=== PATIENT | male | born 1950 | race Caucasian/White ===

== ENCOUNTER 2019-10-09 17:49 | Emergency (ER) | payer MEDICARE, SELFPAY ==
[2019-10-09 18:16] VITALS: BP 80/50; PULSE 61; RESP 16; TEMP 36.5; O2SAT 92; BMI 22.6
--- NOTE | 2019-10-09 18:33 | ED_ITS ---
Entered by Pam Hudson, acting as scribe for Kathy Reid MD, [facility] [place] Oct 09, 2019 17:49 HPI - SOB/Dyspnea General: Chief Complaint: Shortness of Breath/Dyspnea Stated Complaint: SOB, weakness Time Seen by Provider: 10/09/19 18:33 History of Present Illness: HPI Narrative: 69 yo male presents to ED with complaints of difficulty breathing. He said he had his oxygen on but his O2 went down to 73% and never over 80%, on 3L of oxygen. He said his legs are weak and he nearly passed out. He went to his PCP for treatment of an infection in his L arm and was given antibiotics for the beginning stages of pneumonia. His blood pressure has been low (80/40's). He was with his spouse at work yesterday when he began yelling for her, stating that he was weak. He did have a breathing treatment at 1400; his oxygen levels never improved. He said he has had chills but no fever. He confirms body aches and back pain in his lung area. He smokes about 5 cigarettes a day. MD elicited complaint: shortness of breath Pertinent past history: COPD and other (emphysema, fibrosis) Onset (ago): day(s) (yesterday) Context: recent illness Timing: constant Severity: severe Exacerbating factors: exertion, movement, talking and smoke Relieving factors: oxygen, rest and medication Known history of: COPD, recurrent pneumonia and other (emphysema, fibrosis) Associated symptoms: Reports chest pain and other (weakness); Deny abdominal pain, fever(s), nausea, palpitations, polydipsia, polyuria or vomiting Treatment prior to arrival: oxygen and other (breathing treatment) Related Data: Home oxygen amount: 3 liters Review of Systems General: Reports: 10 or more systems reviewed and unremarkable except in HPI and below Const: Denies: fever, chills or body aches Eyes: Reports: blind spots; Denies: change in vision or blurry vision ENMT: Denies: throat pain, enlarged tonsils, painful swallowing, hoarseness, mouth pain or swelling of lips/tongue Card: Reports: chest pain; Denies: palpitations, irregular heart rhythm, edema or swelling of feet/ankles Resp: Denies: shortness of breath, productive cough or non-productive cough GI: Denies: abdominal pain, nausea or vomiting : Denies: flank pain, painful urination, urinary frequency, urinary urgency or urinary hesitancy Musc: Denies: neck pain, back pain or extremity swelling Skin/Breast: Denies: rash, itching or redness Neuro: Denies: headache, numbness in extremities or weakness in extremities Endo: Denies: excessive urination, excessive thirst or tired all the time PFSH ED PFSH: Social History (Updated 10/08/19 @ 10:28 by June Brice LPN) Smoking and tobacco status: current every day smoker Physical Exam Const: COMMON NORMALS: no apparent distress, average body habitus, oriented x3, no limitations, healthy appearing, alert and well nourished HENMT: COMMON NORMALS: normocephalic, head/scalp atraumatic and moist oral mucous membranes HEAD & SCALP: normocephalic and atraumatic Eye: COMMON NORMALS: PERRL, EOMs intact bilaterally, conjunctivae normal and no scleral icterus CONJUNCTIVA: Yes conjunctivae normal PUPIL: Yes PERRL Neck/C-Spine: COMMON NORMALS: full ROM, supple, no meningeal signs, no JVD and no carotid bruits Chest: COMMONS NORMALS: inspection of chest normal and palpation of chest normal Resp: COMMON NORMALS: normal respiratory effort, no retractions, no use of accessory muscles, clear to auscultation bilaterally and percussion normal AUSCULTATION: clear to auscultation bilaterally, crackles and rales PERCUSSION: percussion normal Cardio: COMMON NORMALS: no JVD, regular rate, regular rhythm, S1 normal heart sound, S2 normal heart sound, no gallops, no clicks, no murmurs, no rub and peripheral pulses 2+ throughout RATE: regular rate RHYTHM: regular rhythm HEART SOUNDS: S1 normal and S2 normal PERIPHERAL PULSES: pulses 2+ throughout GI: COMMON NORMALS: normal to inspection, nondistended, normoactive bowel sounds, soft to palpation, non-tender, no hepatosplenomegaly, no masses and no bruits PALPATION: Yes soft and Yes no hepatosplenomegaly : COMMON NORMALS: Yes no CVA tenderness BLADDER/KIDNEY EXAM: Yes no CVA tenderness Back/Pelvis: COMMON NORMALS: no CVA tenderness Extremity: COMMON NORMALS: normal to inspection, full ROM, normal capillary refill, no calf tenderness and no pedal edema Neuro: COMMON NORMALS: oriented x3 SENSORIUM/ORIENTATION: Yes alert MENINGEAL SIGNS: Yes no meningeal signs Skin: COMMON NORMALS: no rashes or lesions noted, no wounds, skin turgor normal, no jaundice, no petechiae and no mottling GENERAL SKIN EXAM: no rashes or lesions noted and turgor normal Course Reevaluation(s): Reevaluation #1: Discussed his lab and imaging findings with him. Negative for acute findings. We will treat him as a case of acute COPD exacerbation. He feels much improved following the treatment he has received in the ED. We will discharge him home on oral steroids and antibiotics. He voiced underst anding and is in agreement with the plan Time: 21:50 Vital Signs: Vital signs: Vital Signs Temperature 97.7 F 10/09/19 18:16 Pulse Rate 76 10/09/19 22:34 Respiratory Rate 16 10/09/19 22:34 Blood Pressure 118/78 10/09/19 22:34 Pulse Oximetry 96 10/09/19 22:34 MDM - SOB/Dyspnea MDM Narrative: Medical decision making narrative: Patient with clinical features consistent with a COPD exacerbation. Evaluation here in the emergency department is unremarkable. He is discharged home on oral antibiotics and corticosteroids. Differential Diagnosis: Shortness of Breath Differential Diagnosis: Likely acute exacerbation of chronic obstructive airways disease, community acquired pneumonia and pulmonary embolism (low pretest probablility) Medical Records: Attestation: I reviewed the patient's medical records. Lab Data: Attestation: I reviewed the patient's lab results. Labs: Lab Results 10/09/19 10/09/19 10/09/19 Range/Units 19:04 19:04 19:04 WBC 8.9 (4.0-10.0) 10^3/ uL RBC 4.59 (4.1-5.3) 10^6/u L Hgb 13.7 (11.7-16.6) g/dL Hct 41.1 L (42.0-52.0) % MCV 89.5 (80-94) fL MCH 29.8 (28.0-34.0) pg MCHC 33.3 (30.0-36.0) g/dL RDW 13.6 (12.1-15.1) % Plt Count 242 (130-400) 10^3/c mm MPV 9.1 (7.4-10.4) fL Neut % (Auto) 56.5 % Lymph % (Auto) 33.0 % Slope % (Auto) 8.0 % Eos % (Auto) 2.0 % Baso % (Auto) 0.4 % Neut # (Auto) 5.0 (1.8-7.7) 10^3/u L Lymph # (Auto) 2.9 (0.8-4.8) 10^3/u L Slope # (Auto) 0.7 (0.2-0.9) 10^3/u L Eos # (Auto) 0.2 (0.0-0.8) 10^3/u L Baso # (Auto) 0.0 (0.0-0.1) 10^3/u L Nucleated RBC % (a uto) 0 % Nucleated RBCs # 0.0 /100WBC D-Dimer 0.36 (0-0.59) ug/mIFE U Specimen Type Sample Site ABG pH (7.35-7.45) ABG pCO2 (35-45) mmHg ABG pO2 (80.0-100.0) mmH g ABG HCO3 (22-26) mmol/L ABG Base Excess (-2.0-2.0) mmol/ L Nico Test Hematocrit (42-52) % Hgb O2 Saturation (95-100) % Carboxyhemoglobin (0.4-20.1) %THgb Methemoglobin (0.4-1.5) % Total Hemoglobin (14-18) g/dL O2 Delivery Device O2 Liters/Min % Mill Supervisor ID Sodium 138 (136-145) mmol/L Potassium 4.2 (3.5-5.1) mmol/L Chloride 101 (98-107) mmol/L Carbon Dioxide 26 (22-29) mmol/L Anion Gap 15.2 (5-19) BUN 15 (8-23) mg/dL Creatinine 0.9 (0.7-1.2) mg/dL GFR Calculation 83.9 L (90-130) mL/min Glucose 107 (65-115) mg/dL Calcium 9.6 (8.5-10.5) mg/dL Total Bilirubin 0.3 (0.15-1.2) mg/dL AST 14 (0-40) U/L ALT 11 (0-41) U/L Alkaline Phosphata se 72 (40-130) IU/L NT-Pro-B Natriuret Pep 106 (0-125) pg/mL Total Protein 7.3 (6.6-8.7) g/dL Albumin 4.1 (3.5-5.2) g/dL Globulin 3.2 (1.3-4.6) g/dL Influenza Type A A g (Negative) POC Influenza B Ag (Negative) 10/09/19 10/09/19 Range/Units 19:05 19:20 WBC (4.0-10.0) 10^3/ uL RBC (4.1-5.3) 10^6/u L Hgb (11.7-16.6) g/dL Hct (42.0-52.0) % MCV (80-94) fL MCH (28.0-34.0) pg MCHC (30.0-36.0) g/dL RDW (12.1-15.1) % Plt Count (130-400) 10^3/c mm MPV (7.4-10.4) fL Neut % (Auto) % Lymph % (Auto) % Slope % (Auto) % Eos % (Auto) % Baso % (Auto) % Neut # (Auto) (1.8-7.7) 10^3/u L Lymph # (Auto) (0.8-4.8) 10^3/u L Slope # (Auto) (0.2-0.9) 10^3/u L Eos # (Auto) (0.0-0.8) 10^3/u L Baso # (Auto) (0.0-0.1) 10^3/u L Nucleated RBC % (a uto) % Nucleated RBCs # /100WBC D-Dimer (0-0.59) ug/mIFE U Specimen Type Arterial Sample Site Radial, left ABG pH 7.46 H (7.35-7.45) ABG pCO2 36.0 (35-45) mmHg ABG pO2 64.9 L (80.0-100.0) mmH g ABG HCO3 25.6 (22-26) mmol/L ABG Base Excess 2.0 (-2.0-2.0) mmol/ L Nico Test Pos Hematocrit 45.3 (42-52) % Hgb O2 Saturation 92.1 L (95-100) % Carboxyhemoglobin 2.1 (0.4-20.1) %THgb Methemoglobin 0.2 L (0.4-1.5) % Total Hemoglobin 14.8 (14-18) g/dL O2 Delivery Device Nc O2 Liters/Min 3.0 % Mill Supervisor ID ellpe Sodium (136-145) mmol/L Potassium (3.5-5.1) mmol/L Chloride (98-107) mmol/L Carbon Dioxide (22-29) mmol/L Anion Gap (5-19) BUN (8-23) mg/dL Creatinine (0.7-1.2) mg/dL GFR Calculation (90-130) mL/min Glucose (65-115) mg/dL Calcium (8.5-10.5) mg/dL Total Bilirubin (0.15-1.2) mg/dL AST (0-40) U/L ALT (0-41) U/L Alkaline Phosphata se (40-130) IU/L NT-Pro-B Natriuret Pep (0-125) pg/mL Total Protein (6.6-8.7) g/dL Albumin (3.5-5.2) g/dL Globulin (1.3-4.6) g/dL Influenza Type A A g Negative (Negative) POC Influenza B Ag Negative (Negative) EKG Data^: EKG 1: Attestation: I personally reviewed and interpreted this EKG as follows: EKG Interpretation Date: 10/09/19 EKG interpretation time: 18:33 Prior EKG tracings: not available for review Interpretation: Sinus bradycardia. Heart rate 56. No ST changes. Normal axis. Discharge Plan Discharge Patient Disposition: Home, Self-Care Clinical Impression: Acute exacerbation of chronic obstructive airways disease Condition: Stable Prescriptions: New azithromycin 250 mg tablet See Rx Instructions .ROUTE .COMPLEX Qty: 6 RF: 0 prednisone 20 mg tablet 40 mg PO DAILY Qty: 10 RF: 0 Continued cephalexin [Keflex] 500 mg capsule 500 mg PO Q8H 10 Days Qty: 30 RF: 0 sertraline 50 mg tablet 100 mg PO DAILY RF: 0 ranitidine HCl 300 mg capsule 300 mg PO BID RF: 0 aspirin 81 mg tablet,delayed release (DR/EC) 81 mg PO DAILY RF: 0 bicalutamide 50 mg Tablet 50 mg PO DAILY RF: 0 Wixela Inhub 250-50 mcg/dose Blister With Device 1 inh INHALATION BID RF: 0 albuterol sulfate 2.5 mg /3 mL (0.083 %) Solution For Nebulization 2.5 mg INHALATION Q4H PRN (Reason: Shortness Of Breath) RF: 0 prednisone 2.5 mg Tablet 2.5 mg PO DAILY RF: 0 ProAir HFA 90 mcg/actuation Hfa Aerosol Inhaler 2 puff INHALATION Q6H PRN (Reason: Shortness Of Breath) RF: 0 Discharge Orders: Discharge Order (Routine); Ordered 10/09/19 Ordered By: Kathy Reid Referrals: Bernadette Ross FNP [Primary Care Provider] - 1-3 days Patient Instructions: Chronic Obstructive Pulmonary Disease (ED) Activity Restrictions/Additional Instructions: Use your nebulizer every 4 hours for the next 2 days scheduled while awake. After that you can use it as needed. Take the antibiotic and steroid as prescribed. Follow-up with your primary care provider within 3 days. Discharge Date/Time: 10/09/19 22:35 Coding Level of Care Code ED Mixing Tumbler Operator for Chg Fwd Exam Comprehensive The documentation recorded by the Becca garcia Valerie R, accurately reflects the service I personally performed and the decisions made by Franklin middleton Adegoke I, MD, [facility] [place] Oct 09, 2019 17:49
--- NOTE | 2019-10-09 18:59 | XR_ITS ---
WS: [id number] XR chest 2V insp/exp [id number] REASON FOR EXAM: SOB FINDINGS: Comparisons were made to July 08, 2017. A reticular nodular pattern is seen throughout both lung granados. There appears to be borderline in the upper lungs and there is findings of centrilobular emphysema. The heart was not enlarged. There is arteriosclerotic changes seen. XR/XR chest 2V insp/exp [id number] IMPRESSION: Bullous emphysematous changes. Interstitial pulmonary fibrosis.
[2019-10-09] MEDS: ipratropium-albuterol 3 mL Neb INHALATION (19:08)
[2019-10-09 19:09] VITALS: PULSE 52; RESP 18; O2SAT 97
[2019-10-09 19:12] LABS: Basophils % 0.4 %; Eosinophils # 0.2 10^3/uL (0.0-0.8); Hematocrit 41.1 % (42.0-52.0); Hemoglobin 13.7 g/dL (11.7-16.6); Lymphocytes # 2.9 10^3/uL (0.8-4.8); Mean Corpuscular HGB Conc 33.3 g/dL (30.0-36.0); Mean Corpuscular Hemoglobin 29.8 pg (28.0-34.0); Mean Corpuscular Volume 89.5 fL (80-94); Mean Platelet Volume 9.1 fL (7.4-10.4); Monocytes # 0.7 10^3/uL (0.2-0.9); Neutrophils % 56.5 %; Nucleated Red Blood Cells % 0 %; Platelet Count 242 10^3/cmm (130-400); Red Blood Count 4.59 10^6/uL (4.1-5.3); Red Cell Distribution Width 13.6 % (12.1-15.1); White Blood Count 8.9 10^3/uL (4.0-10.0)
[2019-10-09 19:14] VITALS: PULSE 59; RESP 16; O2SAT 96
[2019-10-09 19:17] LABS: ABG PH Result 7.46 (7.35-7.45); Arterial Blood Gas Hematocrit 45.3 % (42-52); Blood Gas Allen Test Pos; Blood Gas Sample Site Radial, left; Blood Gas Sample Type Arterial; Carboxyhemoglobin 2.1 %THgb (0.4-20.1); HCO3 ABG 25.6 mmol/L (22-26); HGB O2 Sat 92.1 % (95-100); Methemoglobin 0.2 % (0.4-1.5); Oxygen Device NC; PO2 ABG 64.9 mmHg (80.0-100.0); Total Hemoglobin 14.8 g/dL (14-18)
[2019-10-09 19:29] VITALS: BP 115/74; PULSE 55; RESP 11; O2SAT 96
[2019-10-09 19:36] LABS: Alanine Aminotransferase 11 U/L (0-41); Albumin Level 4.1 g/dL (3.5-5.2); Alkaline Phosphatase 72 IU/L (40-130); Anion Gap 15.2 (5-19); Aspartate Amino Transferase 14 U/L (0-40); Blood Urea Nitrogen 15 mg/dL (8-23); Calcium 9.6 mg/dL (8.5-10.5); Carbon Dioxide 26 mmol/L (22-29); Chloride 101 mmol/L (98-107); Globulin 3.2 g/dL (1.3-4.6); Glomerular Filtration Rate 83.9 mL/min (90-130); Glucose 107 mg/dL (65-115); NT Pro B Type Natriuretic Pept 106 pg/mL (0-125); Potassium 4.2 mmol/L (3.5-5.1); Sodium 138 mmol/L (136-145); Total Bilirubin 0.3 mg/dL (0.15-1.2); Total Protein 7.3 g/dL (6.6-8.7)
[2019-10-09 19:50] LABS: D Dimer 0.36 ug/mIFEU (0-0.59)
[2019-10-09 19:54] LABS: Influenza A by IFA Negative (Negative); Influenza B by IFA Negative (Negative)
[2019-10-09 19:55] VITALS: RESP 14; O2SAT 95
[2019-10-09] MEDS: morphine 4 mg/mL SDV 1 mL IVP (19:55)
[2019-10-09] MEDS: neomycin-poly-bacitracin oint 0.9 gm Pkt 1 APPLIC TOPICAL (20:12)
[2019-10-09 22:34] VITALS: BP 118/78; PULSE 76; RESP 16; O2SAT 96
== END 2019-10-09 22:35 | disposition home or self-care (01) ==
PROVIDERS: Emergency Provider Family Medicine; Family Provider Nurse Practitioner Family; PCP Nurse Practitioner Family
DX: J44.1 Chronic obstructive pulmonary disease with (acute) exacerbation (principal); F17.210 Nicotine dependence, cigarettes, uncomplicated; Z99.81 Dependence on supplemental oxygen
CPT/HCPCS: 36600; 71046; 80053; 82805; 83880; 85025; 85378; 87070; 87205; 87804; 94640; 96374; 96375; 99282; 99284; A9270; J2270; J2930

== ENCOUNTER → 2019-10-22 10:53 | Outpatient (BNVA) | payer MEDICARE, SELFPAY | PROVIDERS: Family Provider Nurse Practitioner Family; PCP Nurse Practitioner Family; Visit Provider Nurse Practitioner Family | DX: R06.02 Shortness of breath (principal); Z13.1 Encounter for screening for diabetes mellitus; Z13.220 Encounter for screening for lipoid disorders; J44.0 Chronic obstructive pulmonary disease with (acute) lower respiratory infection | CPT/HCPCS: 80048; 80061 ==

== ENCOUNTER 2019-10-25 14:21 | Emergency (ER) | payer MEDICARE, SELFPAY ==
[2019-10-25 14:27] VITALS: BP 125/63; PULSE 59; RESP 16; TEMP 37.2; O2SAT 95; BMI 22.6
[2019-10-25 14:33] VITALS: O2SAT 94
--- NOTE | 2019-10-25 14:44 | XR_ITS ---
WS: [id number] XR chest 1V portable [id number] REASON FOR EXAM: chest pain FINDINGS: Emphysematous changes are again noted similar to previous exam of October 09, 2019. In the right lower lung there is reticular pattern scattered reticular pattern throughout both lung f ields consistent with interstitial disease. The heart is not enlarged The mediastinal interfaces were normal. Bullous changes throughout the lung granados are seen. XR/XR chest 1V portable [id number] IMPRESSION: Bullous emphysema. Interstitial fibrosis.
--- NOTE | 2019-10-25 14:44 | ECG_ITS ---
Measurements Intervals [place] Rate: 53 P: 71 NH: 153 QRS: 70 QRSD: 78 T: 69 QT: 436 QTc: [address] DEPRESSION [0.025+ mV ST DEPRESSION] Compared to ECG 07/08/2017 16:26:11 ST (T wave) deviation now present Sinus rhythm no longer present T-wave abnormality no longer present Electronically Signed On 10-25-2019 20:25:05 MANDOLIN REPAIRER by Shankar Guaman M.D. [email or web address]
--- NOTE | 2019-10-25 14:46 | ED_ITS ---
Entered by Pam Hudson, acting as scribe for Kathy Reid MD, [facility] [place] Oct 25, 2019 14:21 HPI - Chest Pain General: Chief Complaint: Chest Pain Stated Complaint: CHEST PAIN Time Seen by Provider: 10/25/19 14:47 Source: patient and RN notes reviewed Mode of arrival: EMS Limitations: no limitations History of Present Illness: HPI narrative: 69 yo male presents to ED with complaints of chest pain. He said he stood to move around in his home when his legs became weak, he had difficulty breathing and a sharp pain went from his L shoulder down through his L arm. He is on 3L oxygen at home. MD complaint: chest pain Pertinent past history: coronary artery disease and other (COPD) Onset (ago): hour(s) (today) Timing of current episode: now resolved Prior episodes: No Onset: during rest Pain location: other (L shoulder) Pain radiation: left arm and abdomen Severity: moderate Quality: sharp Relieving factors: nothing Exacerbating factors: nothing Associated symptoms: Reports dyspnea; Deny abdominal pain, fever(s), nausea, palpitations or vomiting Treatment prior to arrival: aspirin Risk Factors: Coronary artery disease risk factors: none Thoracic aortic dissection risk factors: none Review of Systems General: Reports: 10 or more systems reviewed and unremarkable except in HPI and below Const: Denies: fever, chills or body aches Eyes: Denies: change in vision or blurry vision ENMT: Denies: throat pain, enlarged tonsils, painful swallowing, hoarseness, mouth pain or swelling of lips/tongue Card: Reports: chest pain; Denies: palpitations, irregular heart rhythm, edema or swelling of feet/ankles Resp: Reports: shortness of breath GI: Denies: abdominal pain, nausea or vomiting : Denies: flank pain, painful urination, urinary frequency, urinary urgency or urinary hesitancy Musc: Denies: neck pain, back pain or extremity swelling Skin/Breast: Denies: rash, itching or redness Neuro: Denies: headache, numbness in extremities or weakness in extremities Endo: Denies: excessive urination, excessive thirst or tired all the time PFS ED PFSH: Social History Smoking and tobacco status: current every day smoker Physical Exam Const: COMMON NORMALS: no apparent distress, average body habitus, oriented x3, no limitations, healthy appearing, alert and well nourished HENMT: COMMON NORMALS: normocephalic, head/scalp atraumatic and moist oral mucous membranes HEAD & SCALP: normocephalic and atraumatic Eye: COMMON NORMALS: PERRL, EOMs intact bilaterally, conjunctivae normal and no scleral icterus CONJUNCTIVA: Yes conjunctivae normal PUPIL: Yes PERRL Neck/C-Spine: COMMON NORMALS: full ROM, supple, no meningeal signs, no JVD and no carotid bruits Chest: COMMONS NORMALS: inspection of chest normal and palpation of chest normal Resp: COMMON NORMALS: normal respiratory effort, no retractions, no use of acc essory muscles, clear to auscultation bilaterally and percussion normal AUSCULTATION: clear to auscultation bilaterally PERCUSSION: percussion normal Cardio: COMMON NORMALS: no JVD, regular rate, regular rhythm, S1 normal heart sound, S2 normal heart sound, no gallops, no clicks, no murmurs, no rub and peripheral pulses 2+ throughout RATE: regular rate RHYTHM: regular rhythm HEART SOUNDS: S1 normal and S2 normal PERIPHERAL PULSES: pulses 2+ throughout GI: COMMON NORMALS: normal to inspection, nondistended, normoactive bowel sounds, soft to palpation, non-tender, no hepatosplenomegaly, no masses and no bruits PALPATION: Yes soft and Yes no hepatosplenomegaly : COMMON NORMALS: Yes no CVA tenderness BLADDER/KIDNEY EXAM: Yes no CVA tenderness Back/Pelvis: COMMON NORMALS: no CVA tenderness Extremity: COMMON NORMALS: normal to inspection, full ROM, normal capillary refill, no calf tenderness and no pedal edema Neuro: COMMON NORMALS: oriented x3 SENSORIUM/ORIENTATION: Yes alert MENINGEAL SIGNS: Yes no meningeal signs Skin: COMMON NORMALS: no rashes or lesions noted, no wounds, skin turgor normal, no jaundice, no petechiae and no mottling GENERAL SKIN EXAM: no rashes or lesions noted and turgor normal Course ED course: 77 69-year-old gentleman with COPD/emphysema and pulmonary fibrosis presents to the emergency department with complaints of chest pain and difficulty breathing. The symptom started with difficulty breathing and progressed to left-sided chest pain. On evaluation in the emergency department the patient had negative high- sensitivity troponin x2, other labs and imaging were unremarkable. When I was about to discharge the patient his son came and said the patient had right calf tenderness so a venous Doppler was done which was negative. I spent an extensive amount of time with the patient and his family members talking to them about the results and possible diagnosis including angina, worsening of his emphysema leading to hypoxia, PE which is less likely as he has minimal risk factors and low pretest probability. He will be discharged home while we will schedule an outpatient stress test, we will set him up with a text transcriber, and he will have a pulmonary function test done as a last on he had done was more than 10 years ago. Patient and family voiced understanding and they were in agreement with the plan. Vital Signs: Vital signs: Vital Signs Temperature 99 F 10/25/19 14:27 Pulse Rate 59 L 10/25/19 14:27 Respiratory Rate 16 10/25/19 14:27 Blood Pressure 125/63 10/25/19 14:27 Pulse Oximetry 94 10/25/19 14:33 MDM - Chest Pain MDM Narrative: Medical decision making narrative: Including negative high-sensitivity troponin x2. Patient who presented to the emergency department with chest pain. Evaluation in the ED was unremarkable the patient will be scheduled for an outpatient stress test as well as cardiology evaluation. He will also follow-up with his primary care provider. Medical Records: Attestation: I reviewed the patient's medical records. Lab Data: Attestation: I reviewed the patient's lab results. Labs: Lab Results 10/25/19 10/25/19 10/25/19 Range/Units 14:40 14:40 14:40 WBC 9.8 (4.0-10.0) 10^3/ uL RBC 5.12 (4.1-5.3) 10^6/u L Hgb 15.5 (11.7-16.6) g/dL Hct 45.7 (42.0-52.0) % MCV 89.3 (80-94) fL MCH 30.3 (28.0-34.0) pg MCHC 33.9 (30.0-36.0) g/dL RDW 13.2 (12.1-15.1) % Plt Count 296 (130-400) 10^3/c mm MPV 9.5 (7.4-10.4) fL Neut % (Auto) 67.1 % Lymph % (Auto) 21.4 % [place] % (Auto) 8.4 % Eos % (Auto) 2.4 % Baso % (Auto) 0.3 % Neut # (Auto) 6.6 (1.8-7.7) 10^3/u L Lymph # (Auto) 2.1 (0.8-4.8) 10^3/u L [place] # (Auto) 0.8 (0.2-0.9) 10^3/u L Eos # (Auto) 0.2 (0.0-0.8) 10^3/u L Baso # (Auto) 0.0 (0.0-0.1) 10^3/u L Nucleated RBC % (a uto) 0 % Nucleated RBCs # 0.0 /100WBC PT 13.60 H (10.5-13.3) SECO NDS INR 1.01 (0.8-1.2) Sodium 137 (136-145) mmol/L Potassium 3.8 (3.5-5.1) mmol/L Chloride 102 (98-107) mmol/L Carbon Dioxide 23 (22-29) mmol/L Anion Gap 15.8 (5-19) BUN 13 (8-23) mg/dL Creatinine 0.7 (0.7-1.2) mg/dL GFR Calculation 112.1 (90-130) mL/min Glucose 133 H (65-115) mg/dL Calcium 9.7 (8.5-10.5) mg/dL Total Bilirubin 0.2 (0.15-1.2) mg/dL AST 12 (0-40) U/L ALT 14 (0-41) U/L Alkaline Phosphata se 68 (40-130) IU/L Troponin T Baselin e (0-15) ng/mL Troponin T 120 Min [place] (0-15) ng/mL Delta Troponin T (0-10) ABS# Total Protein 7.2 (6.6-8.7) g/dL Albumin 3.9 (3.5-5.2) g/dL Globulin 3.3 (1.3-4.6) g/dL 10/25/19 10/25/19 Range/Units 14:40 16:39 WBC (4.0-10.0) 10^3/ uL RBC (4.1-5.3) 10^6/u L Hgb (11.7-16.6) g/dL Hct (42.0-52.0) % MCV (80-94) fL MCH (28.0-34.0) pg MCHC (30.0-36.0) g/dL RDW (12.1-15.1) % Plt Count (130-400) 10^3/c mm MPV (7.4-10.4) fL Neut % (Auto) % Lymph % (Auto) % [place] % (Auto) % Eos % (Auto) % Baso % (Auto) % Neut # (Auto) (1.8-7.7) 10^3/u L Lymph # (Auto) (0.8-4.8) 10^3/u L [place] # (Auto) (0.2-0.9) 10^3/u L Eos # (Auto) (0.0-0.8) 10^3/u L Baso # (Auto) (0.0-0.1) 10^3/u L Nucleated RBC % (a uto) % Nucleated RBCs # /100WBC PT (10.5-13.3) SECO NDS INR (0.8-1.2) Sodium (136-145) mmol/L Potassium (3.5-5.1) mmol/L Chloride (98-107) mmol/L Carbon Dioxide (22-29) mmol/L Anion Gap (5-19) BUN (8-23) mg/dL Creatinine (0.7-1.2) mg/dL GFR Calculation (90-130) mL/min Glucose (65-115) mg/dL Calcium (8.5-10.5) mg/dL Total Bilirubin (0.15-1.2) mg/dL AST (0-40) U/L ALT (0-41) U/L Alkaline Phosphata se (40-130) IU/L Troponin T Baselin e 15 (0-15) ng/mL Troponin T 120 Min [place] 12.65 (0-15) ng/mL Delta Troponin T -2.35 L (0-10) ABS# Total Protein (6.6-8.7) g/dL Albumin (3.5-5.2) g/dL Globulin (1.3-4.6) g/dL Imaging Data^: CXR: Radiologist's impression: [facility] [address] [place] [address] XRay Report Signed Patient: Luis Fernando Fitzpatrick #: [id number] : 1Acct#:[id number] Age/Sex: 69 / MADM Date: 10/25/19 Loc: ERRoom/Bed: Attending Dr: Ordering Provider/Ordering MD: Kathy Reid MD, [facility] [place] Date of Service: 10/25/19 Procedure(s): XR chest 1V portable [id number] Accession Number(s): [id number] Report Number: [id number] WS: [id number] XR chest 1V portable [id number] REASON FOR EXAM: chest pain FINDINGS: Emphysematous changes are again noted similar to previous exam of October 09, 2019. In the right lower lung there is reticular pattern scattered reticular pattern throughout both lung granados consistent with interstitial disease. The heart is not enlarged The mediastinal interfaces were normal. Bullous changes throughout the lung granados are seen. XR/XR chest 1V portable [id number] IMPRESSION: Bullous emphysema. Interstitial fibrosis. Dictated By:Bulmaro Ramirez DO Signed By:Bulmaro Ramirez DOSigned Date/Time:10/25/19 1533 DD/ EKG Data^: EKG 1: Attestation: I personally reviewed and interpreted this EKG as follows: EKG interpretation date: 10/25/19 EKG interpretation time: 19:11 Prior EKG tracings: not available for review Interpretation: sinus bradycardia heart rate [address] changes Normal axis EKG 2: Attestation: I personally reviewed and interpreted this EKG as follows: EKG interpretation date: 10/25/19 EKG interpretation time: 14:50 Prior EKG tracings: available for review Interpretation: unchanged from earlier today Discharge Plan Discharge Patient Disposition: Home, Self-Care Clinical Impression: Chest pain, Emphysema lung Condition: Stable Prescriptions: Continued levalbuterol HCl [Xopenex] 0.63 mg/3 mL solution for nebulization 0.63 mg INHALATION ONCE Qty: 3 RF: 0 Daliresp 250 mcg tablet 250 mcg PO DAILY 28 Days Qty: 30 RF: 2 sertraline 50 mg tablet 100 mg PO DAILY RF: 0 ranitidine HCl 300 mg capsule 300 mg PO BID RF: 0 aspirin 81 mg tablet,delayed release (DR/EC) 81 mg PO DAILY RF: 0 bicalutamide 50 mg Tablet 50 mg PO DAILY RF: 0 Wixela Inhub 250-50 mcg/dose Blister With Device 1 inh INHALATION BID RF: 0 albuterol sulfate 2.5 mg /3 mL (0.083 %) Solution For Nebulization 2.5 mg INHALATION Q4H PRN (Reason: Shortness Of Breath) RF: 0 prednisone 2.5 mg Tablet 2.5 mg PO DAILY RF: 0 ProAir HFA 90 mcg/actuation Hfa Aerosol Inhaler 2 puff INHALATION Q6H PRN (Reason: Shortness Of Breath) RF: 0 azithromycin 250 mg tablet See Rx Instructions .ROUTE .COMPLEX Qty: 6 RF: 0 prednisone 20 mg tablet 40 mg PO DAILY Qty: 10 RF: 0 Discharge Orders: Discharge Order (Routine); Ordered 10/25/19 Ordered By: Kathy Reid Referrals: Bernadette Ross FNP [Primary Care Provider] - 1-3 days Patient Instructions: Chest Pain (ED), Chronic Obstructive Pulmonary Disease (ED) Activity Restrictions/Additional Instructions: Return for any new or worsening symptoms. Follow up with your primary care provider within 3 days. You will be contacted by case management to schedule an appointment with cardiology and to set up an outpatient stress test. Call his primary care provider to schedule a pulmonary function test. Coding Level of Care Code ED Ink Blender for Chg Fwd Exam Comprehensive The documentation recorded by the Becca garcia Valerie R, accurately reflects the service I personally performed and the decisions made by Franklin middleton Adegoke I, MD, [facility] [place] Oct 25, 2019 14:21
[2019-10-25 14:58] LABS: Basophils % 0.3 %; Eosinophils # 0.2 10^3/uL (0.0-0.8); Eosinophils % 2.4 %; Hematocrit 45.7 % (42.0-52.0); Hemoglobin 15.5 g/dL (11.7-16.6); Lymphocytes # 2.1 10^3/uL (0.8-4.8); Lymphocytes % 21.4 %; Mean Corpuscular HGB Conc 33.9 g/dL (30.0-36.0); Mean Corpuscular Hemoglobin 30.3 pg (28.0-34.0); Mean Corpuscular Volume 89.3 fL (80-94); Mean Platelet Volume 9.5 fL (7.4-10.4); Monocytes # 0.8 10^3/uL (0.2-0.9); Monocytes % 8.4 %; Neutrophils # 6.6 10^3/uL (1.8-7.7); Neutrophils % 67.1 %; Nucleated Red Blood Cells % 0 %; Platelet Count 296 10^3/cmm (130-400); Red Blood Count 5.12 10^6/uL (4.1-5.3); Red Cell Distribution Width 13.2 % (12.1-15.1); White Blood Count 9.8 10^3/uL (4.0-10.0)
[2019-10-25 15:03] LABS: INR 1.01 (0.8-1.2)
[2019-10-25 15:14] LABS: Alanine Aminotransferase 14 U/L (0-41); Albumin Level 3.9 g/dL (3.5-5.2); Alkaline Phosphatase 68 IU/L (40-130); Anion Gap 15.8 (5-19); Aspartate Amino Transferase 12 U/L (0-40); Blood Urea Nitrogen 13 mg/dL (8-23); Calcium 9.7 mg/dL (8.5-10.5); Carbon Dioxide 23 mmol/L (22-29); Chloride 102 mmol/L (98-107); Globulin 3.3 g/dL (1.3-4.6); Glomerular Filtration Rate 112.1 mL/min (90-130); Glucose 133 mg/dL (65-115); Potassium 3.8 mmol/L (3.5-5.1); Sodium 137 mmol/L (136-145); Total Bilirubin 0.2 mg/dL (0.15-1.2); Total Protein 7.2 g/dL (6.6-8.7)
[2019-10-25 15:15] LABS: Troponin(5th) Baseline 15 ng/mL (0-15)
[2019-10-25 17:11] LABS: Troponin 5 2HR 12.65 ng/mL (0-15)
[2019-10-25 17:22] LABS: Troponin 5 2HR Delta -2.35 ABS# (0-10)
--- NOTE | 2019-10-25 18:32 | USCV_ITS ---
Luis Fernando Fitzpatrick Age: 69 Gender: M : 1950 Exam Date: 10/25/2019 19:08 Ordering Phys: Kathy Reid MD [facility] [place] Technologist: James Forbes [place] [facility] [place]: RT LEG PAIN AND EDEMA HISTORY: Lower extremity pain. PROCEDURES: Venous duplex imaging was performed in only the right lower extremity. The following venous structures were evaluated: common femoral vein, profunda vein, proximal portion of the greater saphenous vein, superficial femoral vein, and the popliteal vein. In addition, the posterior tibial and peroneal trunk were evaluated. On the right side, the common femoral, superficial femoral, profunda femoral, popliteal, posterior tibial, greater saphenous veins and the peroneal trunk were identified and interrogated in the standard fashion. These veins were found to be easily compressible with spontaneous blood flow. No evidence of insufficiency or thrombus noted. FINDINGS: Normal 2-D Doppler and augmentation and compressibility throughout the lower extremity venous structures. Additional imaging through the proximal calf veins also reveals no thrombus. Limited evaluation of the greater saphenous vein is patent with no thrombus.. CONCLUSIONS Negative right ower extremity deep venous Doppler ultrasound. Dr. Ana Beltran MD (Electronically Signed) Final Date: 26 October 2019 08:12 S
--- NOTE | 2019-10-25 20:44 | ECG_ITS ---
Measurements Intervals [place] Rate: 49 P: 97 [place]: 166 QRS: 66 QRSD: 79 T: 66 QT: 453 QTc: [address] DEPRESSION [0.025+ mV ST DEPRESSION] Compared to ECG 07/08/2017 16:26:11 ST (T wave) deviation now present Sinus rhythm no longer present T-wave abnormality no longer present Electronically Signed On 10-25-2019 20:34:11 CAT OPERATOR by Shankar Guaman M.D. [email or web address]
[2019-10-25 20:49] VITALS: BP 113/70; PULSE 50; RESP 19; O2SAT 92
--- NOTE | 2019-10-26 10:08 | DCPLANNER ---
Addendum entered by Leonela Escobedo 10/28/19 16:47: communications program manager spoke with patient when he returned to the ED on 10.28.19, patient was admitted to the hospital. communications program manager was told that patient would not need the stress test ordered as an outpatient since he was being admitted. Original Note: communications program manager has an order for an outpatient stress test for patient. communications program manager called patient to confirm with patient that he still wanted the stress test, and who patient sees for primary care. communications program manager was unable to speak with patient at this time, a voicemail was left for patient to return heel caser phone call.
== END 2019-10-25 20:49 | disposition home or self-care (01) ==
PROVIDERS: Emergency Provider Family Medicine; Family Provider Nurse Practitioner Family; PCP Nurse Practitioner Family
DX: R07.9 Chest pain, unspecified (principal); J43.9 Emphysema, unspecified; I25.10 Atherosclerotic heart disease of native coronary artery without angina pectoris; F17.200 Nicotine dependence, unspecified, uncomplicated; Z79.82 Long term (current) use of aspirin; Z99.81 Dependence on supplemental oxygen
CPT/HCPCS: 36415; 71045; 80053; 84484; 85025; 85610; 93005; 93971; 99283; 99284

== ENCOUNTER 2019-10-28 14:26 | Observation (INO) | payer MEDICARE, SELFPAY ==
[2019-10-28] VITALS (8 sets, daily range): BP systolic 123–159; BP diastolic 66–86; PULSE 52–59; RESP 14–18; TEMP 36.8; O2SAT 93–999; BMI 22.6
--- NOTE | 2019-10-28 14:32 | ED_ITS ---
Entered by Carmita Muniz, acting as scribe for Mynor Chang DO HPI - Chest Pain General: Chief Complaint: Chest Pain Stated Complaint: CHEST PAIN/ L ARM PAIN Time Seen by Provider: 10/28/19 14:32 Source: patient, family and EMS Mode of arrival: EMS Limitations: no limitations History of Present Illness: HPI narrative: 69 yo male presents with chest discomfort. pt states this started this morning . pt states he was sent to the ED for possible heart attack. pt was sitting in a chair then got sudden pain to his L jaw then radiates to L shoulder and L arm. pt has had shortness of breath. pt denies any other symptoms at this time. Patient had been in earlier this week with similar symptoms he did not get his stress test yet. He also has some shortness of breath associated with this he is on oxygen at home for COPD he is not yet seen pulmonology but that is being scheduled. Denies any productive cough. MD complaint: chest discomfort Onset (ago): day(s) Timing of current episode: constant and still present Prior episodes: No Onset: during rest Pain location: other (L shoulder, L arm L Jaw) Pain radiation: left arm, jaw/teeth and left shoulder Severity: moderate Associated symptoms: Reports dyspnea; Deny abdominal pain, fever(s), nausea or vomiting Risk Factors: Coronary artery disease risk factors: smoking history Review of Systems Const: Denies: fever, chills, body aches, change in appetite, fatigue or malaise ENMT: Denies: enlarged tonsils Card: Reports: chest pain; Denies: edema Resp: Reports: shortness of breath; Denies: productive cough or non-productive cough GI: Denies: abdominal pain, nausea, vomiting, vomiting blood, coffee grounds in vomit, diarrhea, constipation, bloating, blood in stool or black tarry stool : Denies: flank pain, painful urination, urinary frequency or urinary urgency Skin/Breast: Denies: rash or itching PFS ED 2 PFSH: Medical History (Updated 10/28/19 @ 17:57 by Jerrell Mcdonald MD) Chest wall contusion COPD (chronic obstructive pulmonary disease) Emphysema lung Prostate cancer Surgical History (Updated 10/28/19 @ 17:57 by Jerrell Mcdonald MD) H/O prostatectomy History of colon resection Family History (Updated 10/28/19 @ 17:57 by Jerrell Mcdonald MD) Other CAD (coronary artery disease) Stroke Social History (Updated 10/28/19 @ 17:57 by Jerrell Mcdonald MD) Smoking and tobacco status: heavy tobacco smoker Alcohol intake: never Substance/Drug Use: never Household members: family Housing: House Physical Exam Const: COMMON NORMALS: no apparent distress GENERAL APPEARANCE: cooperative and comfortable ORIENTATION/CONSCIOUSNESS: Yes awake, Yes oriented to person, Yes oriented to place and Yes oriented to time HENMT: COMMON NORMALS: normocephalic, head/scalp atraumatic, hearing grossly normal bilaterally, external ears normal, EAC's normal, TM's normal bilaterally, nasal mucous membranes and turbinates normal, moist oral mucous membranes and oropharynx normal HEAD & SCALP: normocephalic and atraumatic NOSE: nasal mucous membranes and turbinates normal EXTERNAL EAR: Yes external ears normal EXTERNAL AUDITORY CANAL: EAC's normal TYMPANIC MEMBRANE: TM's normal bilaterally Eye: COMMON NORMALS: PERRL, EOMs intact bilaterally, conjunctivae normal and no scleral icterus CONJUNCTIVA: Yes conjunctivae normal PUPIL: Yes PERRL Neck/C-Spine: COMMON NORMALS: full ROM, no lymphadenopathy, supple and no JVD Lymph: LYMPHATIC: no lymphadenopathy noted and no lymphedema noted Resp: COMMON NORMALS: normal respiratory effort, no retractions, no use of accessory muscles and clear to auscultation bilaterally AUSCULTATION: clear to auscultation bilaterally and rales Cardio: COMMON NORMALS: no JVD RATE: bradycardic GI: COMMON NORMALS: soft to palpation and no hepatosplenomegaly AUSCULTATION: Yes normoactive bowel sounds PALPATION: Yes soft, No tender, No guarding and Yes no hepatosplenomegaly Extremity: COMMON NORMALS: normal to inspection, normal capillary refill, no clubbing, cyanosis or edema, no calf tenderness and no pedal edema Neuro: SENSORIUM/ORIENTATION: Yes oriented to person, Yes oriented to place and Yes oriented to time Skin: COMMON NORMALS: no rashes or lesions noted GENERAL SKIN EXAM: no rashes or lesions noted Course ED course: Patient has a heart score of 4. He was in earlier this week and was supposed to get an outpatient stress test but that never got set up with a difficult time getting a hold of him organ to go ahead and put him on observation to rule out and get stress testing completed. Vital Signs: Vital signs: Vital Signs Temperature 98.2 F 10/28/19 14:30 Pulse Rate 52 L 10/28/19 15:04 Respiratory Rate 16 10/28/19 14:55 Blood Pressure 124/73 10/28/19 14:30 Pulse Oximetry 97 10/28/19 14:55 MDM - Chest Pain Lab Data: Labs: Lab Results 10/28/19 10/28/19 10/28/19 Range/Units 15:13 15:13 15:13 WBC 9.9 (4.0-10.0) 10^3/ uL RBC 4.81 (4.1-5.3) 10^6/u L Hgb 14.9 (11.7-16.6) g/dL Hct 45.4 (42.0-52.0) % MCV 94.4 H (80-94) fL MCH 31.0 (28.0-34.0) pg MCHC 32.8 (30.0-36.0) g/dL RDW 13.2 (12.1-15.1) % Plt Count 231 (130-400) 10^3/c mm MPV 9.1 (7.4-10.4) fL Neut % (Auto) 59.8 % Lymph % (Auto) 28.4 % [place] % (Auto) 8.4 % Eos % (Auto) 2.8 % Baso % (Auto) 0.4 % Neut # (Auto) 5.9 (1.8-7.7) 10^3/u L Lymph # (Auto) 2.8 (0.8-4.8) 10^3/u L [place] # (Auto) 0.8 (0.2-0.9) 10^3/u L Eos # (Auto) 0.3 (0.0-0.8) 10^3/u L Baso # (Auto) 0.0 (0.0-0.1) 10^3/u L Nucleated RBC % (a uto) 0 % Nucleated RBCs # 0.0 /100WBC Sodium 141 (136-145) mmol/L Potassium 4.4 (3.5-5.1) mmol/L Chloride 100 (98-107) mmol/L Carbon Dioxide 32 H (22-29) mmol/L Anion Gap 13.4 (5-19) BUN 19 (8-23) mg/dL Creatinine 0.8 (0.7-1.2) mg/dL GFR Calculation 96.1 (90-130) mL/min Glucose 109 (65-115) mg/dL Calcium 9.7 (8.5-10.5) mg/dL Total Bilirubin 0.3 (0.15-1.2) mg/dL AST 14 (0-40) U/L ALT 13 (0-41) U/L Alkaline Phosphata se 69 (40-130) IU/L Troponin T Baselin e 17 H (0-15) ng/mL Total Protein 6.5 L (6.6-8.7) g/dL Albumin 4.0 (3.5-5.2) g/dL Globulin 2.5 (1.3-4.6) g/dL Lipase 49 (13-60) U/L Urine Color (Yellow) Urine Appearance (CLEAR) Urine pH (5-7) Ur Specific Gravit y (1.005-1.030) Urine Protein (Negative) Urine Glucose (UA) (Normal) Urine Ketones (Negative) Urine Blood (Negative) Urine Nitrate (Negative) Urine Bilirubin (NEGATIVE) Urine Urobilinogen (Negative) mg/dL Ur Leukocyte [place] ase (Negative) 10/28/19 Range/Units 15:33 WBC (4.0-10.0) 10^3/ uL RBC (4.1-5.3) 10^6/u L Hgb (11.7-16.6) g/dL Hct (42.0-52.0) % MCV (80-94) fL MCH (28.0-34.0) pg MCHC (30.0-36.0) g/dL RDW (12.1-15.1) % Plt Count (130-400) 10^3/c mm MPV (7.4-10.4) fL Neut % (Auto) % Lymph % (Auto) % [place] % (Auto) % Eos % (Auto) % Baso % (Auto) % Neut # (Auto) (1.8-7.7) 10^3/u L Lymph # (Auto) (0.8-4.8) 10^3/u L [place] # (Auto) (0.2-0.9) 10^3/u L Eos # (Auto) (0.0-0.8) 10^3/u L Baso # (Auto) (0.0-0.1) 10^3/u L Nucleated RBC % (a uto) % Nucleated RBCs # /100WBC Sodium (136-145) mmol/L Potassium (3.5-5.1) mmol/L Chloride (98-107) mmol/L Carbon Dioxide (22-29) mmol/L Anion Gap (5-19) BUN (8-23) mg/dL Creatinine (0.7-1.2) mg/dL GFR Calculation (90-130) mL/min Glucose (65-115) mg/dL Calcium (8.5-10.5) mg/dL Total Bilirubin (0.15-1.2) mg/dL AST (0-40) U/L ALT (0-41) U/L Alkaline Phosphata se (40-130) IU/L Troponin T Baselin e (0-15) ng/mL Total Protein (6.6-8.7) g/dL Albumin (3.5-5.2) g/dL Globulin (1.3-4.6) g/dL Lipase (13-60) U/L Urine Color Yellow (Yellow) Urine Appearance Clear (CLEAR) Urine pH 8 H (5-7) Ur Specific Gravit y 1.015 (1.005-1.030) Urine Protein Neg (Negative) Urine Glucose (UA) Norm (Normal) Urine Ketones Negative (Negative) Urine Blood Neg (Negative) Urine Nitrate Negative (Negative) Urine Bilirubin Neg (NEGATIVE) Urine Urobilinogen Norm (Negative) mg/dL Ur Leukocyte [place] ase Negative (Negative) Imaging Data^: CXR: Radiologist's impression: [address] [address] XRay Report Signed Patient: Luis Fernando Fitzpatrick #: [id number] : 1Acct#:[id number] Age/Sex: 69 / MADM Date: 10/28/19 Loc: ERRoom/Bed: Attending Dr: Ordering Provider/Ordering MD: Mynor Chang DO Date of Service: 10/28/19 Procedure(s): XR chest 1V portable [id number] Accession Number(s): [id number] Report Number: [id number] WS: [id number] XR chest 1V portable [id number] REASON FOR EXAM: dyspnea/cough FINDINGS: This study again shows a reticular pattern particularly in the right lower lung with calcified granulomas seen similar to the previous exam of October 25, 2019. There are scattered bullae and both lung granados and mild hyperaeration consistent with bullous emphysema. The heart was normal. The hilum and the apices are normal. XR/XR chest 1V portable [id number] IMPRESSION: Mild bullous emphysematous changes Interstitial fibrosis No definite pneumonia. Dictated By:Bulmaro Ramirez DO Signed By:Bulmaro Ramirez DOSigned Date/Time:10/28/19 1459 Discharge Plan Discharge Patient Disposition: Placed in Observation Admit Provider: Jerrell Mcdonald Clinical Impression: Chest pain, COPD (chronic obstructive pulmonary disease) Coding Level of Care Code ED Emergency Manager for Chg Fwd Exam Comprehensive The documentation recorded by the Flavio garcia Bridget Annette, accurately reflects the service I personally performed and the decisions made by Charlene middleton Curtis L, DO Oct 28, 2019 14:26
--- NOTE | 2019-10-28 14:40 | XR_ITS ---
WS: [id number] XR chest 1V portable [id number] REASON FOR EXAM: dyspnea/cough FINDINGS: This study again shows a reticular pattern particularly in the right lower lung with calcif ied granulomas seen similar to the previous exam of October 25, 2019. There are scattered bullae and both lung granados and mild hyperaeration consistent with bullous emphys cassie. The heart was normal. The hilum and the apices are normal. XR/XR chest 1V portable [id number] IMPRESSION: Mild bullous emphysematous changes Interstitial fibrosis No definite pneumonia.
--- NOTE | 2019-10-28 14:40 | ECG_ITS ---
Measurements Intervals [place] Rate: 52 P: 80 RI: 167 QRS: 76 QRSD: 78 T: 73 QT: 447 QTc: 419 SINUS BRADYCARDIA Compared to ECG 10/25/2019 19:11:00 ST (T wave) deviation no longer present Electronically Signed On 10-28-2019 16:58:56 RN FLOAT by Sammy Grijalva M.D. [id number] f
[2019-10-28] MEDS: ipratropium-albuterol 3 mL Neb INHALATION ×2 (14:59→23:45)
[2019-10-28 15:22] LABS: Basophils % 0.4 %; Eosinophils # 0.3 10^3/uL (0.0-0.8); Eosinophils % 2.8 %; Hematocrit 45.4 % (42.0-52.0); Hemoglobin 14.9 g/dL (11.7-16.6); Lymphocytes # 2.8 10^3/uL (0.8-4.8); Lymphocytes % 28.4 %; Mean Corpuscular HGB Conc 32.8 g/dL (30.0-36.0); Mean Corpuscular Volume 94.4 fL (80-94); Mean Platelet Volume 9.1 fL (7.4-10.4); Monocytes # 0.8 10^3/uL (0.2-0.9); Monocytes % 8.4 %; Neutrophils # 5.9 10^3/uL (1.8-7.7); Neutrophils % 59.8 %; Nucleated Red Blood Cells % 0 %; Platelet Count 231 10^3/cmm (130-400); Red Blood Count 4.81 10^6/uL (4.1-5.3); Red Cell Distribution Width 13.2 % (12.1-15.1); White Blood Count 9.9 10^3/uL (4.0-10.0)
[2019-10-28 15:35] LABS: Troponin(5th) Baseline 17 ng/mL (0-15)
[2019-10-28 15:43] LABS: Alanine Aminotransferase 13 U/L (0-41); Alkaline Phosphatase 69 IU/L (40-130); Anion Gap 13.4 (5-19); Aspartate Amino Transferase 14 U/L (0-40); Blood Urea Nitrogen 19 mg/dL (8-23); Calcium 9.7 mg/dL (8.5-10.5); Carbon Dioxide 32 mmol/L (22-29); Chloride 100 mmol/L (98-107); Globulin 2.5 g/dL (1.3-4.6); Glomerular Filtration Rate 96.1 mL/min (90-130); Glucose 109 mg/dL (65-115); Lipase 49 U/L (13-60); Potassium 4.4 mmol/L (3.5-5.1); Sodium 141 mmol/L (136-145); Total Bilirubin 0.3 mg/dL (0.15-1.2); Total Protein 6.5 g/dL (6.6-8.7)
[2019-10-28 15:48] LABS: Add Urine Microscopic? NO
[2019-10-28 15:57] LABS: Bilirubin Urine Neg (NEGATIVE); Blood Urine Neg (Negative); Glucose Urine UA Norm (Normal); Ketones Urine Negative (Negative); Leukocyte Esterase Urine Negative (Negative); Nitrate Urine Negative (Negative); Protein Urine Neg (Negative); Specific Gravity, Urine 1.015 (1.005-1.030); Urine Appearance Clear (CLEAR); Urine Color Yellow (Yellow); Urobilinogen Urine Norm (Negative); pH Urine 8 (5-7)
--- NOTE | 2019-10-28 16:40 | ECG_ITS ---
Measurements Intervals [place] Rate: 56 P: 71 AL: 163 QRS: 71 QRSD: 82 T: 69 QT: 423 QTc: [address] DEPRESSION [0.025+ mV ST DEPRESSION] Compared to ECG 10/28/2019 15:14:25 ST (T wave) deviation now present Electronically Signed On 10-29-2019 15:52:53 WHIPPER by Linda Cormier M.D. [email or web address]/store/NU/[id number] f
--- NOTE | 2019-10-28 17:51 | PM.HP ---
Providers/Chief Complaint Admitting Physician: Jerrell Mcdonald MD Primary Care Provider: SHRADDHA Ramsey Chief Complaint: CHEST PAIN/ L ARM PAIN History of Present Illness Luis Fernando Fitzpatrick is a 69 year old male past medical history of COPD, chronic smoker, lives at 2.5 to 3.5 L of oxygen, prostate cancer in remission, recent chest contusion after a fall 2 months ago after which he has been treated for pneumonia as an outpatient with azithromycin for a month presents to the ER for the second time in last 1 week because of chest pain. He states chest pain is on the left side rating to down his left arm getting aggravated with exertion and relieved by rest along with some dizziness and nausea. He denies of having any diaphoresis, palpitations, headache. Patient states pain has been on and off going on for last 3 days. Patient states he always has a cough for many years and has not changed recently. The consistency, quantity of the sputum production has not changed either. Patient has a strong family history of CAD with father dying at age of 52 and sister dying with stroke at age 42. As per family patient smokes at least half a pack of cigarettes every day for last 40 to 50 years. Patient supposed to be using inhalers at home but is very noncompliant with the same. Patient is also been having shortness of breath on exertion which was stable for many years but has gotten worse after his fall. At present he gets out of breath on walking 100 yards. He denies of having any runny nose, fever, chills, sick contacts, recent travels, flulike symptoms, diarrhea, diuresis, dysuria, swelling in his legs, leg cramps. Review of Systems Const: Denies: fever, chills, body aches, change in appetite, malaise, night sweats, diaphoresis, change in sleep pattern, daytime sleepiness or snoring Eyes: Denies: change in vision, blurry vision, photophobia, eye discomfort or eye discharge ENMT: Denies: throat pain, enlarged tonsils, hoarseness, mouth pain, oral sores/lesions, dry mouth, tinnitus, nasal congestion or post nasal drip Card: Reports: chest pain, lightheadedness and shortness of breath on exertion; Denies: palpitations, irregular heart rhythm, edema, swelling of feet/ankles, syncope, pre-syncope, shortness of breath when lying down, leg pain with exertion or bluish discoloration of hands/feet Resp: Reports: shortness of breath, productive cough and pain on inspiration; Denies: non-productive cough, wheezing, stridor, change in phlegm color, coughing up blood or chest congestion GI: Denies: abdominal pain, nausea, vomiting, vomiting blood, coffee grounds in vomit, difficulty swallowing, heartburn/indigestion, diarrhea, constipation, bloating, cramping, change in bowel habits, painful bowel movements, blood in stool or black tarry stool : Denies: flank pain, difficulty urinating, painful urination, urinary frequency, urinary urgency, urinary hesitancy, urinary dribbling, difficulty starting urination, change in urine stream, nighttime urination or blood in urine Musc: Denies: neck pain, back pain, extremity pain, joint pain, joint swelling, redness, joint stiffness or limited range of motion Neuro: Denies: headache, numbness in extremities, weakness in extremities, changes in sensation, lack of coordination, difficulty walking, frequent falls, dizziness, vertigo, confusion, slurred speech, difficulty communicating thoughts or seizure-like activity Psych: Denies: anxiety, depression, mood swings, panic attacks, hopelessness or irritability Endo: Denies: excessive urination, excessive thirst, tired all the time, cold intolerance, excessive sweating, flushing or heat intolerance Omkar/Lymph: Denies: easy bruising or easy bleeding All/Imm: Denies: tongue swelling, facial swelling or acute wheezing Medications/Allergies Allergies Allergy/AdvReac Type Severity Reaction Status Date / Time ibuprofen Allergy Unknown Verified 10/28/19 14:40 PFSH Acute PFSH: Medical History (Updated 10/28/19 @ 17:57 by Jerrell Mcdonald MD) Chest wall contusion COPD (chronic obstructive pulmonary disease) Emphysema lung Prostate cancer Surgical History (Updated 10/28/19 @ 17:57 by Jerrell Mcdonald MD) H/O prostatectomy History of colon resection Family History (Updated 10/28/19 @ 17:57 by Jerrell Mcdonald MD) Other CAD (coronary artery disease) Stroke Social History (Updated 10/28/19 @ 17:57 by Jerrell Mcdonald MD) Smoking and tobacco status: heavy tobacco smoker Alcohol intake: never Substance/Drug Use: never Household members: family Housing: House Vitals/I&O/Wt Last Vital Signs Temp 98.2 F 10/28/19 14:30 Pulse 52 L 10/28/19 15:04 Resp 16 10/28/19 14:55 BP 124/73 10/28/19 14:30 Pulse Ox 97 10/28/19 14:55 Weight last 48 hrs Weight 69.4 kg Physical Exam Narrative: EXAM NARRATIVE: General: No acute distress, AO x3, on 3 L nasal cannula saturating 96% HEENT: PERRLA, pupils bilaterally equal and reactive Chest: Bilateral bronchial breath sounds, no added sounds, equal good air entry bilaterally CVS: S1-S2 regular, no murmurs, no tachycardia, no gallops, no rubs Abdomen: Soft, nontender, no organomegaly, bowel sounds present Neuro: No focal deficits, no facial deformity, AO x3, power 5/5 in all limbs Data : 10/28/19 15:13 10/28/19 15:13 A&P Assessment and plan (1) Chest pain: Status: Acute Code(s): R07.9 - Chest pain, unspecified (2) COPD (chronic obstructive pulmonary disease): Status: Acute Code(s): J44.9 - Chronic obstructive pulmonary disease, unspecified (3) Emphysema lung: Status: Acute Qualifiers: Emphysema type: unspecified Qualified Code(s): J43.9 - Emphysema, unspecified Code(s): J43.9 - Emphysema, unspecified (4) Chest wall contusion: Status: Acute Code(s): S20.219A - Contusion of unspecified front wall of thorax, initial encounter Additional A&P Information Chest pain: To rule out ACS given his history of smoking, early family history, hypertension. We will cycle cardiac enzymes. Negative for now. Stress test tomorrow morning. Aspirin 325 mg stat followed by 81 mg daily. Check lipid panel, HbA1c in the morning. Oxygen keeping saturation at 90% Morphine 1 mg every 4 hours as needed. Nitro as needed sublingual every 10 minutes. COPD: Duo nebs every 6 hours, budesonide twice daily No need of steroids at present given possible ACS along with the fact that patient does not have any wheeze. Oxygen supplementation keeping saturation between 90-92%. Pulmonary function test before discharge. Chest wall contusion: Morphine for pain Patient will need lidocaine patch for pain Incentive spirometry. Cardiac diet. N.p.o. after midnight for stress test. Lovenox for DVT prophylaxis Full code. Attestations Medical Necessity Statement*: Chest pain ACS rule out. Admission for less than 2 midnights. Time Spent in Patient Care: Greater than 35 minutes (>than 50% of time spent in counselling and/or direct pt care on unit). 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
[2019-10-28 17:58] LABS: Troponin 5 2HR 15.69 ng/mL (0-15)
[2019-10-28 18:00] LABS: Troponin 5 2HR Delta -1.31 ABS# (0-10)
[2019-10-28] MEDS: aspirin 325 mg EC Tablet PO (19:31)
--- NOTE | 2019-10-28 20:40 | ECG_ITS ---
Measurements Intervals [place] Rate: 50 P: 74 NC: 169 QRS: 90 QRSD: 89 T: 64 QT: 463 QTc: 426 SINUS BRADYCARDIA POSSIBLE RIGHT VENTRICULAR CONDUCTION DELAY [RSR (QR) IN V1/V2] Compared to ECG 10/28/2019 15:14:25 No significant changes Electronically Signed On 10-29-2019 15:40:24 STAFFING MGR by Linda Cormier M.D. [email or web address]/[id number]
--- NOTE | 2019-10-28 20:50 | PC.NURSE ---
EKG done at 2046 and shown to ER doctor
[2019-10-28 21:54] LABS: Troponin 5 6HR 16.25 ng/mL (0-15)
[2019-10-28 22:00] LABS: Troponin 5 6HR Delta -0.75 ng/L (0-12)
--- NOTE | 2019-10-28 22:44 | PC.NURSE ---
PT CAME TO [facility] 105 FROM ED. PT AMBULATED TO BED. PT HAS A 20G IN LEFT HAND. PT IS IN A SINUS CHRISTIANNE RHYTHM AT THIS TIME. VS BP 123/66, HR 55, R 17, SPO2 93% ON 3L. PT HAS 0 C/O PAIN AT THIS TIME. WILL CONTINUE TO MONITOR.
[2019-10-28] MEDS: atorvastatin 40 mg Tablet PO (23:31)
[2019-10-28] MEDS: enoxaparin 40 mg/0.4 mL Syringe SUBCUT (23:32)
[2019-10-28] MEDS: famotidine 20 mg/2 mL INJ IVP (23:40)
[2019-10-29] VITALS (63 sets, daily range): BP systolic 99–141; BP diastolic 41–75; PULSE 53–92; RESP 12–24; TEMP 36.3–36.7; O2SAT 86–96
[2019-10-29] LABS: Iron 43 ug/dL (59-158); NT Pro B Type Natriuretic Pept 123 pg/mL (0-125); Total Iron Binding Capacity 195 mcg/dl; Unsaturated Iron Binding 152 ug/dL (112-347)
[2019-10-29] MEDS: ipratropium-albuterol 3 mL Neb INHALATION ×4 (02:59→21:46)
[2019-10-29 03:59] LABS: Basophils % 0.3 %; Eosinophils # 0.4 10^3/uL (0.0-0.8); Eosinophils % 3.7 %; Hematocrit 41.7 % (42.0-52.0); Hemoglobin 13.6 g/dL (11.7-16.6); Lymphocytes # 3.2 10^3/uL (0.8-4.8); Lymphocytes % 29.1 %; Mean Corpuscular HGB Conc 32.6 g/dL (30.0-36.0); Mean Corpuscular Hemoglobin 29.7 pg (28.0-34.0); Mean Platelet Volume 9.1 fL (7.4-10.4); Monocytes # 0.9 10^3/uL (0.2-0.9); Monocytes % 8.5 %; Neutrophils # 6.4 10^3/uL (1.8-7.7); Neutrophils % 58.2 %; Nucleated Red Blood Cells % 0 %; Platelet Count 240 10^3/cmm (130-400); Red Blood Count 4.58 10^6/uL (4.1-5.3); Red Cell Distribution Width 13.2 % (12.1-15.1)
[2019-10-29 04:27] LABS: Cholesterol 161 mg/dL (0-200); HDL Cholesterol 35 mg/dL (60-100); LDL Cholesterol Calculated 94 mg/dL (50-129); Triglycerides 161 mg/dL (0-150); VLDL Cholestrol Calculation 32 mg/dL (0-30)
[2019-10-29 04:28] LABS: Alanine Aminotransferase 13 U/L (0-41); Albumin Level 3.5 g/dL (3.5-5.2); Alkaline Phosphatase 62 IU/L (40-130); Aspartate Amino Transferase 14 U/L (0-40); Blood Urea Nitrogen 17 mg/dL (8-23); Calcium 9.6 mg/dL (8.5-10.5); Carbon Dioxide 26 mmol/L (22-29); Chloride 104 mmol/L (98-107); Globulin 2.7 g/dL (1.3-4.6); Glomerular Filtration Rate 96.1 mL/min (90-130); Glucose 121 mg/dL (65-115); Sodium 140 mmol/L (136-145); Total Bilirubin 0.3 mg/dL (0.15-1.2); Total Protein 6.2 g/dL (6.6-8.7)
[2019-10-29 04:31] LABS: Estmated Average Glucose 126
--- NOTE | 2019-10-29 06:00 | ECG_ITS ---
NAME OF STUDY: LEXISCAN SESTAMIBI STRESS TEST INDICATION: R/O ACS, NOTE: Please note that this is the electrocardiogram portion of the Lexiscan/Sestamibi stress test. The perfusion scan will be documented separately. DATA: Baseline heart rate was 53 beats per minute. Baseline blood pressure was 104/66 millimeters of mercury. Target heart rate was 152. Maximum heart rate achieved was 149. which was 98 % of the predicted target heart rate. Maximum blood pressure was 114/66 millimeters of mercury. The reason for ending the test was completion of the protocol. The patient did not experience any symptoms. ELECTROCARDIOGRAM: BASELINE: Sinus bradycardia. Normal axis. Otherwise, no ST-T changes suggestive of ischemia noted. No arrhythmia noted. EXERCISE: After Lexiscan injection, no ST-T changes suggestive of ischemic noted. No arrhythmia noted. 1. EKG not suggestive of ischemia 2. Lexiscan injection unremarkable. 3. Perfusion scan will be documented separately. Electronically Signed On 10-30-2019 18:50:33 SUPPLY CHAIN COORDINATOR by Oneal Guerra M.D. [id number]
--- NOTE | 2019-10-29 07:00 | NMCV_ITS ---
NM zulay perf SPECT r/s* [id number] Luis Fernando Fitzpatrick Age: 69 Gender: M : 1950 Exam Date: 10/29/2019 06:58 Ordering Phys: Jerrell Mcdonald MD Technologist: YOSI Mckeon Exam Location: [facility] Indications: CHEST PAIN/ L ARM PAIN STRESS TEST Please see separate stress test report in [facility] for full findings IMAGE PROTOCOL Rest/Stress 1 Lexiscan Day Radiopharmaceutical Dose (mCi) Administration Site Administered by Rest: Tc-99m 10.8 IV YOSI Mckeon Sestamibi Stress:Tc-99m 32.5 IV YOSI Iglesias Sestamibi Rest: 29-Oct-2019 60 Discovery 630 Stress: 29-Oct-2019 30 Discovery 630 0.4mg Lexiscan. Images obtained in supine and prone position. SPECT RESULTS Technical Quality: Excellent Raw Data Analysis: Normal Image Corrections: No attenuation or motion correction applied Summed Stress Score: 1 Summed Rest Score: 3 Summed Difference Score: 0 PERFUSION FINDINGS Small size perfusion abnormality of mild severity of apical septal, lateral and apical inferior gage on rest images with improved tracer uptake on stress images. This is suggestive of attenuation artifact. FUNCTIONAL RESULTS (calculated via Gated SPECT) Stress Image LV EF (%): 65 Stress EDV (mL):93 TID: 0.93 Stress ESV (mL):33 FUNCTIONAL FINDINGS: The left ventricle is normal in size. Transient Ischemia Dilatation of 0.93. There is normal left ventricular systolic function. The left ventricular ejection fraction is normal with a value of 65%. There is normal left ventricular wall thickening. Normal end-diastolic and end-systolic volumes. IMPRESSIONS 1. Myocardial perfusion imaging is normal. 2. Overall left ventricular systolic function is normal without regional wall motion abnormalities. 3. The left ventricular ejection fraction is normal with a value of 65%. 4. This study suggests a low likelihood of angiographically significant coronary artery disease. Linda Cormier MD (Electronically Signed) Final Date: 29 October 2019 13:22 S
[2019-10-29] MEDS: regadenoson 0.4 Mg/5 ml Syringe IVP (07:45)
--- NOTE | 2019-10-29 08:04 | PC.NURSE ---
PATIENT HELD IN CDL UNTIL 2ND NUC MED SCANS
[2019-10-29] MEDS: sertraline 50 mg Tablet 100 MG PO (10:02)
[2019-10-29] MEDS: aspirin 81 mg EC Tablet PO (10:03)
[2019-10-29] MEDS: lidocaine 5% Patch 1 PATCH TOPICAL (10:03)
[2019-10-29] MEDS: budesonide 0.5 mg/2 mL Neb INHALATION ×2 (10:08→21:46)
[2019-10-29] MEDS: famotidine 20 mg/2 mL INJ IVP ×2 (10:09→21:06)
--- NOTE | 2019-10-29 12:56 | PC.RESP ---
Patient given information on Smoking Cessation and Pulmonary Rehab.
--- NOTE | 2019-10-29 14:00 | PFTS_ITS ---
Date of Study:10/29/2019 Date of Dictation: MECHANICS: Forced vital capacity (FVC) is normal. Forced expiratory volume in one second (FEV1) is reduced. FEV1/FVC is reduced. FLOW VOLUME LOOP: Reduced flow at all lung volumes with significant scooping. LUNG VOLUMES: Not measured DIFFUSING CAPACITY FOR CARBON MONOXIDE: Not measured. INTERPRETATION: The pulmonary function tests are consistent with moderate airflow obstruction. There is no significant postbronchodilator response. MTDD
--- NOTE | 2019-10-29 14:35 | XR_ITS ---
WS: [id number] XR femur RT 1V REASON FOR EXAM: fall FINDINGS: The left femur was evaluated from the hip to the knee shows normal alignment. There is no definite fractures seen in either the hip knee joint are the shaft of the femur. XR/XR femur RT 1V IMPRESSION: Negative right femur.
--- NOTE | 2019-10-29 14:35 | XR_ITS ---
WS: [id number] XR ankle RT 2V [id number] REASON FOR EXAM: fall FINDINGS: The ankle mortise was normal. The tibia, fibula, talus show no fractures. The posterior malleolus was normal. XR/XR ankle RT 2V 15036 IMPRESSION: Negative right ankle for fractures.
--- NOTE | 2019-10-29 14:35 | XR_ITS ---
WS: [id number] XR hip BI 3-4V wo/w pel [id number] REASON FOR EXAM: fall FINDINGS: AP pelvis and laterals of both hips show normal ilium, ischium, and pubis bilaterally. The sacroiliac joints are normal. The right hip AP lateral projection shows no definite fractures. The alignment is satisfactory. The left hip 2 views shows no fractures or displacement. XR/XR hip BI 3-4V wo/w pel [id number] IMPRESSION: Normal appearance of the pelvis Normal left hip Normal right hip.
--- NOTE | 2019-10-29 14:35 | XR_ITS ---
WS: [id number] XR tibia fibula LT 2V [id number] REASON FOR EXAM: fall FINDINGS: The tibia fibular were evaluated including the knee and ankle. No fractures of the shafts o f the tibia and fibular were noted. At the ankle and ankle mortise was normal. No fractures of the tibia, fibula, R talus. At the knee the knee show no disruption and no fractures. XR/XR tibia fibula LT 2V [id number] IMPRESSION: Normal tibia fibula study.
--- NOTE | 2019-10-29 14:35 | CT_ITS ---
WS: [id number] CT HEAD TECHNIQUE: Noncontrast CT of the head obtained from the skullbase to the vertex. CLINICAL INFORMATION: head injury from fall COMPARISON: None. DLP: 751.[address] scans at [facility] use at least one of these dose optimization techniques: automat ed exposure control; mA and/or kV adjustment per patient size (includes targeted exams where dose is matched to clinical indication); or iterative reconstruction. FINDINGS: No evidence of intracranial hemorrhage or mass effect. Ventricular system and basal cisterns are garcia nt. Mild small vessel changes with mild parenchymal volume loss. Chronic lacunar infarcts in the basa l ganglia. No extra-axial fluid collections. No evidence of mass or mass effect. Normal peguero-white di fferentiation. Mild mucosal thickening paranasal sinuses. Mastoid air cells are well aerated. Intracranial vascular calcification. CT/CT head wo con* [id number] IMPRESSION: 1. No evidence of intracranial hemorrhage or mass effect. 2. Mild small vessel changes with mild parenchymal volume loss. 3. Chronic lacunar infarcts in the basal ganglia bilaterally. 4. No acute intracranial findings.
--- NOTE | 2019-10-29 14:35 | XR_ITS ---
WS: [id number] XR ankle LT 2V 25848 REASON FOR EXAM: fall FINDINGS: The ankle mortise is intact. No fractures of the tibia, fibula, or talus. The posterior shelf of the tibia were normal. XR/XR ankle LT 2V 00546 IMPRESSION: Negative left ankle.
--- NOTE | 2019-10-29 14:35 | XR_ITS ---
WS: [id number] XR femur LT 1V 08079 REASON FOR EXAM: fall FINDINGS: The left femur appears to be normal with no fractures or displacement. There is arterioscle rotic changes of the vasculature. There is no soft tissue masses seen. XR/XR femur LT 1V 16962 IMPRESSION: No fractures of the left femur.
--- NOTE | 2019-10-29 14:35 | XR_ITS ---
WS: [id number] XR tibia fibula RT 2V 17476 REASON FOR EXAM: fall FINDINGS: The knee and tibia-fibula were evaluated show no fractures of the knee the patella tibial s pace was normal. The tibia-fibula show normal alignment there is no fractures seen no soft tissue masses. XR/XR tibia fibula RT 2V 12035 IMPRESSION: Normal tibia fibula Normal right knee.
--- NOTE | 2019-10-29 15:10 | PM.PN ---
Subjective Subjective: Interval history: Underwent stress test today which has returned negative for ischemia. PFT done and pending. Patient was planned for discharge this afternoon however while walking out of the bathroom, he slipped and now has difficulty standing up. He additionally hit his head on the door knob. 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 Data : 10/29/19 03:10 10/29/19 03:10 A&P Assessment and plan (1) Chest wall contusion: Status: Acute Code(s): S20.219A - Contusion of unspecified front wall of thorax, initial encounter (2) Emphysema lung: Status: Acute Qualifiers: Emphysema type: unspecified Qualified Code(s): J43.9 - Emphysema, unspecified Code(s): J43.9 - Emphysema, unspecified (3) COPD (chronic obstructive pulmonary disease): Status: Acute Code(s): J44.9 - Chronic obstructive pulmonary disease, unspecified (4) Chest pain: Status: Acute Code(s): R07.9 - Chest pain, unspecified Additional A&P Information Chest pain: To rule out ACS given his history of smoking, early family history, hypertension. Stress test negative this morning Oxygen keeping saturation at 90% Morphine 1 mg every 4 hours as needed. COPD: Duo nebs every 6 hours, budesonide twice daily No need of steroids at present as not currently exacerbated Oxygen supplementation keeping saturation between 90-92%. Pulmonary function test done today, results pending. Chest wall contusion: Morphine for pain Patient will need lidocaine patch for pain Incentive spirometry. Mechanical fall this afternoon: Check X ray hip and legs, Ct head Cardiac diet. Lovenox for DVT prophylaxis Full code. 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
--- NOTE | 2019-10-29 19:11 | PC.NURSE ---
nurse responded to patient hollering help. pt fell in the floor. nurse gloria roman RN at bedside when this nurse entered the room. pt in room, stated pt went to the bathroom and on the way back slipped and fell and hit his head on the door. pt complained of left leg/hip pain. melissa lift sent after. pt rolled onto melissa lift pad and put in bed using the melissa. dr nguyễn notfied and put in orders for xray and CT. electrician powerhouse , notified of incident also.
[2019-10-29] MEDS: enoxaparin 40 mg/0.4 mL Syringe SUBCUT (21:06)
[2019-10-29] MEDS: atorvastatin 40 mg Tablet PO (21:06)
[2019-10-29] MEDS: morphine 4 mg/mL SDV 1 mL 2 MG IVP (21:07)
[2019-10-30] VITALS (9 sets, daily range): BP systolic 102–117; BP diastolic 56–71; PULSE 51–77; RESP 13–18; TEMP 36.6; O2SAT 84–98
[2019-10-30] MEDS: ipratropium-albuterol 3 mL Neb INHALATION ×2 (04:02→09:47)
[2019-10-30] MEDS: budesonide 0.5 mg/2 mL Neb INHALATION (09:48)
[2019-10-30] MEDS: sertraline 50 mg Tablet 100 MG PO (09:53)
[2019-10-30] MEDS: famotidine 20 mg/2 mL INJ IVP (09:53)
[2019-10-30] MEDS: aspirin 81 mg EC Tablet PO (09:54)
[2019-10-30] MEDS: lidocaine 5% Patch 1 PATCH TOPICAL (09:54)
[2019-10-30 11:02] LABS: Alanine Aminotransferase 13 U/L (0-41); Albumin Level 3.6 g/dL (3.5-5.2); Alkaline Phosphatase 64 IU/L (40-130); Anion Gap 15.8 (5-19); Aspartate Amino Transferase 17 U/L (0-40); Blood Urea Nitrogen 13 mg/dL (8-23); Calcium 9.5 mg/dL (8.5-10.5); Carbon Dioxide 24 mmol/L (22-29); Chloride 100 mmol/L (98-107); Globulin 3.6 g/dL (1.3-4.6); Glomerular Filtration Rate 96.1 mL/min (90-130); Glucose 129 mg/dL (65-115); Magnesium 2.2 mg/dL (1.7-2.3); Potassium 3.8 mmol/L (3.5-5.1); Sodium 136 mmol/L (136-145); Total Bilirubin 0.5 mg/dL (0.15-1.2); Total Protein 7.2 g/dL (6.6-8.7)
--- NOTE | 2019-10-30 11:03 | PM.DCS ---
Discharge Providers Date of Admission: 10/28/19 16:04 Date of Discharge: October 30, 2019 Attending Provider at Admission: Jerrell Mcdonald MD Attending Provider at Discharge: Shelby Ray MD Primary Care Provider: SHRADDHA Ramsey Diagnoses at Discharge Discharge Diagnosis (1) Chest wall contusion: Status: Acute (2) Emphysema lung: Status: Acute Qualifiers: Emphysema type: unspecified Qualified Code(s): J43.9 - Emphysema, unspecified (3) COPD (chronic obstructive pulmonary disease): Status: Acute (4) Chest pain: Status: Acute Reason for Visit Reason for Visit: Reason For Visit: CHEST PAIN/ L ARM PAIN Hospital Course Discharge Summary: Luis Fernando Fitzpatrick is a 69 year old male past medical history of COPD, chronic smoker, lives at 2.5 to 3.5 L of oxygen, prostate cancer in remission, recent chest contusion after a fall 2 months ago after which he has been treated for pneumonia as an outpatient with azithromycin for a month presents to the ER for the second time in last 1 week because of chest pain. His pain appears to be more musculoskeletal in nature, however because of his significant history Of smoking, early family history of CAD, hypertension ACS rule out. His cardiac enzymes remain negative. A stress test was performed 10/29/2019 which did not reveal as of reversible ischemia he received morphine as needed for pain control not had any repeat pain since the day of admission. He also underwent a pulmonary function test the results of which are still pending lidocaine patch appeared to help with his chest wall pain. While being prepped for discharge on 10/29/2019, patient to suffered a mechanical fall in his room and struck his head on the doorknob. Afterwards. For this reason he underwent x-ray of the pelvis and ankles which did not reveal any acute fractures. CT of the head also did not reveal any traumatic injuries to the brain. He is being discharged today in stable condition. Should his chest pain continue, he is recommended to follow-up with cardiology. Referral has been provided for COPD outpatient management to oven drier tender Dr. Burrows. Physical Exam Narrative: EXAM NARRATIVE: GEN: Awake, alert and oriented, no acute distress CVS: S1S2 N RS: CTA B/L, fine crackles B/L LL Abd: Soft, nt/nd , bs+ EVALUATOR TRANSFER STUDENTS: no focal neuro deficits Discharge Data Data Completed and Pending: Completed Studies During Hospitalization Category Date Time Status CT head wo con* 7 0450 Stat Cat Scan 10/29/19 14:35 Completed XR ankle LT 2V 73 600 Stat Exams 10/29/19 14:35 Completed XR ankle RT 2V 73 600 Stat Exams 10/29/19 14:35 Completed XR chest 1V dulce ble 28320 Stat Exams 10/28/19 14:40 Completed XR femur LT 1V 73 551 Stat Exams 10/29/19 14:35 Completed XR femur RT 1V 73 551 Stat Exams 10/29/19 14:35 Completed XR hip BI 3-4V wo /w pel 85513 Stat Exams 10/29/19 14:35 Completed XR tibia fibula L T 2V 62090 Stat Exams 10/29/19 14:35 Completed XR tibia fibula R T 2V 91088 Stat Exams 10/29/19 14:35 Completed NM zulay perf SPECT r/s* 94371 Routin e Nuc Med 10/29/19 07:00 Completed Pending at discharge Category Date Time Status Sestamibi Stress Test Request Routi ne Exams 10/28/19 18:06 Stop Req Sestamibi Stress Test Request Routi ne Exams 10/29/19 06:00 Ordered Labs from last 24 hours 10/30/19 10:29 Sodium 136 Potassium 3.8 Chloride 100 Carbon Dioxide 24 Anion Gap 15.8 BUN 13 Creatinine 0.8 GFR Calculation 96.1 Glucose 129 H Calcium 9.5 Magnesium 2.2 Total Bilirubin 0.5 AST 17 ALT 13 Alkaline Phosphata se 64 Total Protein 7.2 Albumin 3.6 Globulin 3.6 Vitals: Last Vital Signs Temp 97.9 F 10/30/19 07:06 Pulse 60 10/30/19 09:53 Resp 18 10/30/19 09:48 BP 117/71 10/30/19 07:06 Pulse Ox 84 L 10/30/19 09:57 Discharge Plan Discharge Patient Disposition: Home Health Service Condition: Stable Prescriptions: New lidocaine 4 % adhesive patch,medicated 1 patch TOPICAL DAILY PRN (Reason: pain) Qty: 6 RF: 0 acetaminophen 325 mg Tablet 650 mg PO Q6H PRN (Reason: Mild/Mod Pain Or Temp >/= 101) Qty: 0 RF: 0 Continued Daliresp 250 mcg tablet 250 mcg PO DAILY 28 Days Qty: 30 RF: 2 sertraline 50 mg tablet 100 mg PO DAILY RF: 0 ranitidine HCl 300 mg capsule 300 mg PO BID RF: 0 aspirin 81 mg tablet,delayed release (DR/EC) 81 mg PO DAILY RF: 0 fluticasone propion-salmeterol [Wixela Inhub] 250-50 mcg/dose Blister With Device 1 inh INHALATION BID RF: 0 albuterol sulfate 2.5 mg /3 mL (0.083 %) Solution For Nebulization 2.5 mg INHALATION Q4H PRN (Reason: Shortness Of Breath) RF: 0 prednisone 2.5 mg Tablet 2.5 mg PO DAILY RF: 0 albuterol sulfate [ProAir HFA] 90 mcg/actuation Hfa Aerosol Inhaler 2 puff INHALATION Q6H PRN (Reason: Shortness Of Breath) RF: 0 Discharge Orders: Discharge Order (Routine); Ordered 10/30/19 Ordered By: Shelby Ray Other Ambulatory Orders: DME: Walker (Order) Location: None Selected Ordered By: Shelby Ray Referrals: [facility] [Outside] Bernadette Ross FNP [Primary Care Provider] - 7-10 days Bella Burrows MD [Physician] - 2 weeks Discharge Diet: Usual diet Discharge Activity: Resume usual activity and Use walker/crutches as instructed Discharge Attestations Time Spent in Discharge Care*: less than 30 min Quality Metrics Clinical Quality Measures During this hospital stay, did patient experience: None Coding Level of Care Code Acute Acute Care Nursing Assistant for [facility] Fwd Diagnoses Chest wall contusion S20.219A Emphysema lung J43.9 Emphysema type: unspecified COPD (chronic obstructive pulmonary disease) J44.9 Chest pain R07.9
== END 2019-10-30 12:29 | disposition home health service (06) ==
LOC: ER 16:31 → CSU 17:06
PROVIDERS: Admitting Provider Student in an Organized Health Care Education/Training Program; Emergency Provider Family Medicine; Family Provider Nurse Practitioner Family; PCP Nurse Practitioner Family; Visit Provider Student in an Organized Health Care Education/Training Program
DX: S20.219A Contusion of unspecified front wall of thorax, initial encounter (principal); X58.XXXA Exposure to other specified factors, initial encounter; R07.9 Chest pain, unspecified; J43.9 Emphysema, unspecified; R53.1 Weakness; F17.210 Nicotine dependence, cigarettes, uncomplicated; Z99.81 Dependence on supplemental oxygen; C61 Malignant neoplasm of prostate
CPT/HCPCS: 12345; 36415; 70450; 71045; 73522; 73551; 73590; 73600; 78452; 80053; 80061; 81003; 83036; 83540; 83550; 83690; 83735; 83880; 84443; 84484; 85025; 93005; 93017; 94060; 94640; 96372; 96374; 96375; 99283; 99285; A9500; G0378; J1650; J2270; J2785; J3490; J7626